=== PATIENT | male | born 1965 | race Caucasian/White ===

== ENCOUNTER 2017-03-06 10:54 | Emergency (ER) | payer BC, OTHER ==
[~2017-03-06] VITALS: Ht 188 cm; Wt 128.0 kg
[~2017-03-06 10:54] MED LIST: ADVAI100I PO; ASPI81TA82 PO; CLON1 PO; PRED50 PO; VASO10TA8 PO
[2017-03-06 11:02] VITALS: BP 175/81; PULSE 91; RESP 16; TEMP 98.3; O2SAT 94
[2017-03-06] MEDS ORDERED: LISI10TA3 PO (11:11)
[2017-03-06] MEDS ORDERED: FLUTI44I INH (11:11)
--- NOTE | 2017-03-06 11:51 | PD ---
HPI Chief Complaint: Skin Problem Time Seen by Provider: 11:15 Travel History International Travel<30 days: No Contact w/Intl Traveler<30days: No Traveled to known affect area: No History of Present Illness HPI 51-year-old male here with abscess to the right axilla 3 days. He denies fever or chills. He has pain at the site on the areas touch. No alleviating factors. Symptoms severity is moderate. PFSH Past Medical History Hx Anticoagulant Therapy: Yes (BABY ASA DAILY) Arthritis: Yes (HAND) Asthma: Yes Atrial Fibrillation: Yes (had ablation) Blood Disorders: No Anxiety: Yes Depression: No Heart Rhythm Problems: Yes Cancer: No Cardiac Catheterization: Yes Cardiovascular Problems: Yes (HTN) High Cholesterol: No Chest Pain: No Congestive Heart Failure: No COPD: Yes Diabetes: Yes (BORDERLINE) Patient Takes Glucophage: No Diminished Hearing: No Endocrine: No GERD: Yes Genitourinary: No Heparin Induced Thrombocytopen: No Hypertension: Yes Immune Disorder: No Implanted Vascular Access Dvce: No Musculoskeletal: Yes Neurologic: No Psychiatric: Yes Reproductive: No Respiratory: Yes Immunizations Current: Yes Myocardial Infarction: No Sleep Apnea: No Ulcer: Yes PNEUMOCCOCAL Vaccine (Year): 2 Past Surgical History Cardiac Surgery: Yes (HEART ABLATION DECEMBER 2009) Other Surgery: No Family History Family Myocardial Infarction: No Social History Alcohol Use: Yes (4 BEERS A DAY) Tobacco Use: No (quit 4 years ago) Substance Use: No Allergies-Medications (Allergen,Severity, Reaction): Coded Allergies: penicillin G (Unverified Allergy, Mild, 03/06/17) Reported Meds & Prescriptions Reported Meds & Active Scripts Active Reported Flovent Hfa 10.6 GM Inh (Fluticasone Propionate) 44 Mcg/Act Inh 2 Puff INH DAILY Use daily at the same time. Lisinopril 10 Mg Tab 10 Mg PO DAILY Review of Systems Except as stated in HPI: all other systems reviewed are Neg General / Constitutional: No: Fever Eyes: No: Visual changes HENT: No: Headaches Cardiovascular: No: Chest Pain or Discomfort Respiratory: No: Shortness of Breath Gastrointestinal: No: Abdominal Pain Genitourinary: No: Dysuria Physical Exam Narrative GENERAL: Alert male. Well-appearing. SKIN:1.5 CM area of erythema and induration to the right axilla. The area is fluctuant. No drainage. HEAD: Normocephalic. EYES: No injection or drainage. NECK: Supple, trachea midline. No JVD or lymphadenopathy. CARDIOVASCULAR: Regular rate and rhythm RESPIRATORY: Breath sounds equal bilaterally. No accessory muscle use. GASTROINTESTINAL: Abdomen soft, non-tender, nondistended. MUSCULOSKELETAL: No cyanosis, or edema. BACK: Nontender without obvious deformity. No CVA tenderness. Data Data Last Documented VS Vital Signs Date Time Temp Pulse Resp B/P (MAP) Pulse Ox O2 Delivery O2 Flow Rate FiO2 03/06/17 11:02 98.3 91 16 175/81 (112) 94 MDM Medical Decision Making Medical Screen Exam Complete: Yes Emergency Medical Condition: Yes Differential Diagnosis Abscess, cellulitis, lymphadenopathy Narrative Course 51-year-old male here with abscess to the right axilla. He is nontoxic appearing. His vital signs are stable. Incision and drainage performed. Patient tolerated procedure well. Procedures Procedure Narrative INCISION AND DRAINAGE OF ABSCESS: The area was prepped and was sterilely draped. Topical Ethyl chloride was used to anesthetize the area properly. A number 11] scalpel was used to make a [0.5] -cm incision across the area of the abscess. The abscess was drained, complex loculations were broken down, and irrigated with normal saline. Quarter inch iodoform packing was placed in the wound. Sterile dressing applied. Patient advised to have packing removed in two days. Diagnosis Primary Impression: Abscess Referrals: Primary Care Physician Departure Forms: Tests/Procedures, Work Release Enter return to work date: Mar 09, 2017 Additional Instructions: Take antibiotics as prescribed. Keep it clean dry dressing on the area. Packing needs to be removed in 1-2 days Scripts Sulfamethoxazole-Trimethoprim (Bactrim DS) 800-160 Mg Tab 1 TAB PO BID for Infection, #20 TAB 0 Refills Prov: Libertad Syed 03/06/17 Disposition: 01 DISCHARGE HOME Condition: Stable Libertad Syed Mar 06, 2017 11:51
[2017-03-06] MEDS ORDERED: BACT800T5 PO (12:03)
== END 2017-03-06 12:22 | disposition home or self-care (01) ==
LOC: PHEFT 10:54
DX: L02.411 Cutaneous abscess of right axilla (principal); I10 Essential (primary) hypertension; J44.9 Chronic obstructive pulmonary disease, unspecified; I48.91 Unspecified atrial fibrillation; R73.03 Prediabetes; Z79.82 Long term (current) use of aspirin; Z87.39 Personal history of other diseases of the musculoskeletal system and connective tissue; Z86.59 Personal history of other mental and behavioral disorders; Z87.19 Personal history of other diseases of the digestive system
CPT/HCPCS: 10060